=== PATIENT | male | born 1950 | race Caucasian/White ===

== ENCOUNTER 2021-08-31 07:12 | Day surgery (SDC) | payer MEDICARE, OTHER ==
[2021-08-24 14:29] LABS: BASOPHILS % (AUTO) 0.5 % (0-1); EOSINOPHILS # (AUTO) 0.2 X10'3 (0-0.9); EOSINOPHILS % (AUTO) 2.6 % (0-6); LYMPHOCYTES # (AUTO) 1.2 X10'3 (1.1-4.8); LYMPHOCYTES % (AUTO) 18.5 % (21-51); MEAN CORPUSCULAR HEMOGLOBIN 30.7 PG (27.0-31.0); MEAN CORPUSCULAR HGB CONC 34.1 g/dL (33.0-36.5); MEAN CORPUSCULAR VOLUME 90.2 FL (78-98); MEAN PLATELET VOLUME 8.5 FL (7.4-10.4); MONOCYTES # (AUTO) 0.5 X10'3 (0-0.9); MONOCYTES % (AUTO) 8.2 % (2-12); NEUTROPHILS # (AUTO) 4.6 X10'3 (1.8-7.7); NEUTROPHILS % (AUTO) 70.2 % (42-75); PRE OP HEMATOCRIT 44.1 % (42.0-52.0); PRE OP PLATELET COUNT 221 X10'3 (140-440); RED BLOOD COUNT 4.88 X10'6 (4.70-6.10); RED CELL DISTRIBUTION WIDTH 13.6 % (11.5-14.5)
[2021-08-24 15:16] LABS: ALBUMIN 3.8 G/DL (3.4-5.0); ALBUMIN/GLOBULIN RATIO 1.2 (1.1-1.5); ALKALINE PHOSPHATASE 81 IU/L (46-116); BLOOD UREA NITROGEN 16 MG/DL (7-18); BUN/CREATININE RATIO 14.2 (5.4-32.0); CALCIUM 8.7 MG/DL (8.5-10.1); CHLORIDE 109 MMOL/L (99-107); CREATININE 1.13 MG/DL (0.60-1.10); PRE OP ALT 16 U/L (30-65); PRE OP ANION GAP 9 (8-16); PRE OP AST 16 U/L (10-37); PRE OP BILIRUB, TOTAL 0.6 MG/DL (0.0-1.0); PRE OP GLUCOSE 81 MG/DL (70-104); PRE OP SODIUM 144 MMOL/L (135-145); TOTAL CARBON DIOXIDE 26.4 MMOL/L (24-32); eGFR 64 ML/MIN
[~2021-08-31] VITALS: Ht 180.3 cm; Wt 61.4 kg
[2021-08-31] VITALS (13 sets, daily range): BP systolic 132–162; BP diastolic 77–96
[~2021-08-31 07:12] MED LIST: ATOR40TA72 PO; LACTOFERRIN; UBID100C16 PO; [UNRECOGNIZED DRUG - OTHER]; cefazolin/dext.iso 2gm/50ml IV ONE; famotidine 20mg tablet PO ONE; ringers solution, lacted 1,000 ML IV SCH
[2021-08-31] MEDS ORDERED: LIDOcaine 1% (10mg/ml)w/preservative inj. 20ml MDV ONE (09:18)
[2021-08-31] MEDS ORDERED: BUPIVAcaine 0.5% inj/PF 30 ML ONE (09:18)
[2021-08-31] MEDS ORDERED: sevoflurane 250ml liquid IH ONE (09:31)
[2021-08-31] MEDS ORDERED: FENTANYL CITRATE/PF 50 MCG/1 ML VIAL ONE (09:36)
[2021-08-31] MEDS ORDERED: midazolam 1 mg/ML 2ml injection ONE (09:36)
[2021-08-31] MEDS ORDERED: BUPIVAcaine 0.5% inj/PF 30 ml vial IJ ONE (09:55)
[2021-08-31] MEDS ORDERED: morphine 2 MG/ML inj. syringe IV PRN (10:05)
[2021-08-31] MEDS ORDERED: ondansetron/PF 4mg/2ml inj IV PRN (10:05)
[2021-08-31] MEDS ORDERED: meperidine/PF 25mg/ml syringe IV PRN ×2 (10:05)
[2021-08-31] MEDS ORDERED: morphine 4 MG/ML inj SYRINge IV PRN (10:05)
[2021-08-31] MEDS ORDERED: proCHLORperazine 10 MG/2 ml inj IV PRN (10:05)
[2021-08-31] MEDS ORDERED: ringers solution, lacted 1,000 ML IV SCH (10:05)
[2021-08-31] MEDS ORDERED: rocuronium 10mg/ml inj IV ONE (10:20)
[2021-08-31] MEDS ORDERED: propofol inj 20 ML IV ONE (10:20)
[2021-08-31] MEDS ORDERED: dexamethasone sod phosphate 4mg/ml inj. ONE (10:20)
[2021-08-31] MEDS ORDERED: ondansetron/PF 4mg/2ml inj ONE (10:21)
[2021-08-31] MEDS ORDERED: neostigmine methylsulfate 1 MG/ML 10ml vial ONE (10:22)
[2021-08-31] MEDS ORDERED: glycopyrrolate 0.2mg/ml inj ONE (10:22)
--- NOTE | 2021-08-31 10:35 | NUR ---
Received from OR via [facility], accompanied by Anesthesiologist DR MARKHAM and report given by Anesthesiolgist. PT PRESENTS WITH PIV 20G LEFT WRIST, ABD DRESSING CDI, VSS. Addendum: 08/31/21 at 1113 by Eden Valdez RN, RN Amended: Links added.
[2021-08-31] MEDS: meperidine/PF 25mg/ml syringe IV PRN ×2 (10:40→11:32)
[2021-08-31] MEDS ORDERED: HYDROcodone/acetaminophen 5mg/325mg tablet PO PRN (10:45)
--- NOTE | 2021-08-31 12:00 | NUR ---
PT URINATED IMMEDIATELY COMING OUT OF THE OR. PER DR OLGA PAIGE TO LET PT GO HOME. Addendum: 08/31/21 at 1228 by Eden Valdez RN, RN Amended: Links added.
--- NOTE | 2021-08-31 12:15 | NUR ---
ALL DISCHARGE CRITERIA HAS BEEN MET. VSS, PAIN AT A TOLERABLE LEVEL, VOIDING AND ABLE TO SAFELY AMBULATE AND TRANSFER SELF. IV TAKEN OUT WITHOUT ANY COMPLICATIONS. ALL DISCHARGE INSTRUCTIONS COVERED WITH PATIENT AND ALL QUESTIONS ANSWERED. PATIENT TAKEN OUT VIA WHEELCHAIR TO PERSONAL VEHICLE WHERE FAMILY/FRIEND DROVE PATIENT HOME. Addendum: 08/31/21 at 1224 by Eden Valdez RN, RN Amended: Links added.
== END 2021-08-31 12:15 | disposition home or self-care (01) ==
LOC: PAS 07:12
PROVIDERS: ATTEND Surgery
DX: K40.90 Unilateral inguinal hernia, without obstruction or gangrene, not specified as recurrent (principal); E78.5 Hyperlipidemia, unspecified; Z20.822 Contact with and (suspected) exposure to COVID-19; Z79.899 Other long term (current) drug therapy; Z98.52 Vasectomy status; Z87.891 Personal history of nicotine dependence; Z72.89 Other problems related to lifestyle; Z85.828 Personal history of other malignant neoplasm of skin; Z83.3 Family history of diabetes mellitus
CPT/HCPCS: 36415; 49650; 80053; 82948; 85025; 93005; C1781; J0690; J1100; J2175; J2250; J2405; J2704; J2710; J3010; J3490; J7030; J7120; S0020; U0003; U0005; Z7506; Z7508; Z7512; A4215; A4618